=== PATIENT | male | born 1960 | race Caucasian/White ===

== ENCOUNTER → 2025-05-13 09:56 | Outpatient (REF) | payer BC, SELFPAY | LOC: RCS 09:56 | PROVIDERS: ATTENDING PHYSICIAN Internal Medicine Cardiovascular Disease; FAMILY PHYSICIAN Family Medicine | DX: I25.111 Atherosclerotic heart disease of native coronary artery with angina pectoris with documented spasm (principal); I42.9 Cardiomyopathy, unspecified | CPT/HCPCS: 93306 ==

== ENCOUNTER 2025-06-18 07:01 | Outpatient (RCR) | payer BC, SELFPAY ==
[2025-06-20 09:54] LABS: HDL Cholesterol 44 mg/dl; LDL Cholesterol, Calculated 65 mg/dl; Very Low Density Lipoprotein 16 mg/dl (0-30)
== END 2025-06-18 23:59 | disposition home or self-care (01) ==
LOC: CRHB 07:01
PROVIDERS: ATTENDING PHYSICIAN Internal Medicine Cardiovascular Disease; FAMILY PHYSICIAN Family Medicine
DX: Z95.1 Presence of aortocoronary bypass graft (principal)
CPT/HCPCS: 80061; 93797; 93798

== ENCOUNTER 2025-07-23 14:46 | Outpatient (RCR) | payer BC, SELFPAY | END 2025-07-23 23:59 | disposition home or self-care (01) | LOC: CRHB 14:46 | PROVIDERS: ATTENDING PHYSICIAN Internal Medicine Cardiovascular Disease; FAMILY PHYSICIAN Family Medicine | DX: I25.2 Old myocardial infarction (principal); Z95.1 Presence of aortocoronary bypass graft | CPT/HCPCS: 93797; 93798 ==

== ENCOUNTER 2025-08-25 16:12 | Outpatient (RCR) | payer BC, SELFPAY | END 2025-08-25 23:59 | disposition home or self-care (01) | LOC: CRHB 16:12 | PROVIDERS: ATTENDING PHYSICIAN Internal Medicine Cardiovascular Disease; FAMILY PHYSICIAN Family Medicine | DX: I25.2 Old myocardial infarction (principal); Z95.1 Presence of aortocoronary bypass graft | CPT/HCPCS: 93797; 93798 ==

== ENCOUNTER 2025-09-24 16:41 | Outpatient (RCR) | payer BC, SELFPAY | END 2025-09-24 23:59 | disposition home or self-care (01) | LOC: CRHB 16:41 | PROVIDERS: ATTENDING PHYSICIAN Internal Medicine Cardiovascular Disease; FAMILY PHYSICIAN Family Medicine | DX: I25.2 Old myocardial infarction (principal); Z95.1 Presence of aortocoronary bypass graft | CPT/HCPCS: 93798 ==

== ENCOUNTER 2025-10-13 16:13 | Outpatient (RCR) | payer BC, SELFPAY ==
[2025-10-01 13:29] LABS: HDL Cholesterol 46 mg/dl; LDL Cholesterol, Calculated 60 mg/dl; Very Low Density Lipoprotein 15 mg/dl (0-30)
== END 2025-10-14 08:27 | disposition home or self-care (01) ==
LOC: CRHB 16:13
PROVIDERS: ATTENDING PHYSICIAN Internal Medicine Cardiovascular Disease; FAMILY PHYSICIAN Family Medicine
DX: I25.2 Old myocardial infarction (principal); I25.10 Atherosclerotic heart disease of native coronary artery without angina pectoris (principal); Z95.1 Presence of aortocoronary bypass graft
CPT/HCPCS: 36415; 80061; 93797; 93798